=== PATIENT | female | born 1945 | race Caucasian/White ===

== ENCOUNTER 2024-11-03 12:24 | Emergency (ER) | payer MEDICARE, OTHER ==
[~2024-11-03] VITALS: Ht 162.6 cm; Wt 46.0 kg
[2024-11-03 12:27] VITALS: TEMP 36.9; O2SAT 98
[2024-11-03] MEDS: HYDROCODONE/ACETAMINOPHEN 5/325MG TABLET PO STA (15:52)
[2024-11-03 16:32] VITALS: BP 94/56; PULSE 63; RESP 12; O2SAT 98
== END 2024-11-03 16:38 | disposition home or self-care (01) ==
LOC: ER 12:24
DX: S82.002A Unspecified fracture of left patella, initial encounter for closed fracture (principal); Z88.1 Allergy status to other antibiotic agents; Z88.2 Allergy status to sulfonamides; W01.0XXA Fall on same level from slipping, tripping and stumbling without subsequent striking against object, initial encounter; Y93.89 Activity, other specified; Y92.89 Other specified places as the place of occurrence of the external cause; Y99.8 Other external cause status
CPT/HCPCS: 73562; 99283